=== PATIENT | male | born 1990 | race African-American/Black ===

== ENCOUNTER 2024-06-22 02:21 | Emergency (ER) | payer SELFPAY ==
[~2024-06-22] VITALS: Ht 177.8 cm; Wt 82.0 kg
[2024-06-22 02:26] VITALS: TEMP 36.6; O2SAT 100
[2024-06-22 03:41] VITALS: PULSE 83
[2024-06-22] MEDS: KETOROLAC 15MG/ML VIAL IM ONE (03:41)
[2024-06-22 03:42] VITALS: BP 153/90; RESP 18
[2024-06-22] MEDS: LIDOCAINE 5% PATCH TOP SCH (03:42)
[2024-06-22] MEDS ORDERED: NAPR-1176 MT (04:50)
[2024-06-22] MEDS ORDERED: LIDO-53 TP (04:50)
== END 2024-06-22 05:23 | disposition home or self-care (01) ==
LOC: ER 02:21
DX: M54.2 Cervicalgia (principal); Z79.1 Long term (current) use of non-steroidal anti-inflammatories (NSAID); Z79.899 Other long term (current) drug therapy; V89.2XXA Person injured in unspecified motor-vehicle accident, traffic, initial encounter; Y93.89 Activity, other specified; Y92.89 Other specified places as the place of occurrence of the external cause; Y99.8 Other external cause status
CPT/HCPCS: 99283; J1885